=== PATIENT | male | born 1995 | race Caucasian/White ===

== ENCOUNTER 2019-11-19 20:43 | Emergency (ER) | payer OTHER ==
[~2019-11-19] VITALS: Ht 157.5 cm; Wt 68.0 kg
[2019-11-19 21:03] LABS: ABSOLUTE BASOPHILS 0.1 thou/uL (0.0-0.2); ABSOLUTE EOSINOPHILS 0.1 thou/uL (0.0-0.7); ABSOLUTE LYMPHOCYTES 1.7 thou/uL (0.8-5.3); BASOPHILS 0.5 %; EOSINOPHILS 0.5 %; HEMATOCRIT 43.2 % (42.0-52.0); LYMPHOCYTES 11.6 %; MCHC 34.6 g/dL (28.0-37.0); MCV 86.7 fL (80.0-100.0); MONOCYTES 6.6 %; MPV 8.3 fl. (7.2-11.1); NUCLEATED RBCS 0 /100WBC; PLATELET COUNT* 249 thou/uL (150-400); POLYS 80.8 %; RBC 4.99 mil/uL (4.50-6.00); RDW-CV 12.6 % (10.5-14.5); WBC 14.9 thou/uL (4.0-11.0)
[2019-11-19 21:04] LABS: URINE BILIRUBIN 2+ (Negative); URINE BLOOD 3+ (Negative); URINE CLARITY CLEAR; URINE COLOR YELLOW; URINE GLUCOSE-RANDOM NEGATIVE (Negative); URINE KETONES NEGATIVE (Negative); URINE LEUKOCYTES-REFLEX NEGATIVE (Negative); URINE NITRITE-REFLEX NEGATIVE (Negative); URINE PROTEIN 1+ (Negative); URINE SPECIFIC GRAVITY >= 1.030 (1.005-1.030)
[2019-11-19 21:06] LABS: ICTOTEST (BILI CONFIRMATORY) Positive (Negative)
[2019-11-19 21:09] LABS: CALCIUM 9.3 mg/dL (8.5-10.1); CREATININE 1.2 mg/dL (0.6-1.3); POTASSIUM 3.5 mmol/L (3.5-5.1)
[2019-11-19 21:10] LABS: BACTERIA-REFLEX >30 Many /HPF (None Seen); CASTS None Seen /LPF (None Seen); MUCUS >6 Heavy strn/LPF (None Seen); SQUAMOUS 4-10 Moderate /LPF (0-3); URINE RBC 0-2 Rare /HPF (0-2); URINE WBC-REFLEX 0-5 Rare /HPF (0-5)
[2019-11-19 21:11] LABS: CRYSTALS None Seen /LPF (None Seen)
[2019-11-19] MEDS ORDERED: HYDROCODON-ACE1 EAC8 PO (21:45)
[2019-11-19] MEDS ORDERED: ZOFRAN ODT4 MG PO (21:45)
[2019-11-19 21:59] VITALS: BP 134/83
== END 2019-11-19 22:01 | disposition home or self-care (01) ==
LOC: M.ERS 20:43
PROVIDERS: Emergency Medicine
DX: N20.0 Calculus of kidney (principal); R11.2 Nausea with vomiting, unspecified